=== PATIENT | male | born 1930 | race Caucasian/White ===

== ENCOUNTER → 2017-08-15 | Outpatient (CLI) | payer OTHER ==
[~2017-08-15] MED LIST: OMEPRAZOLE 20 M20 MG PO; SIMVASTATIN40 MG PO; SYNTHROID50 MCG PO; XALATAN2.5 ML OPHTHALMIC
--- NOTE | ~2017-08-15 | P ---
[facility] [place] [address] PROCEDURE REPORT Name: GISELA DUDLEY Room #: REG [facility]#: [id number] Admission: 08/15/17 Attend Phys: Moshe Hercules MD Discharge: Date of : [birth year] Report #: [id number] THIS REPORT FOR: //name// CC: Sergei Hercules DATE OF SERVICE: 08/15/2017 BRONCHOSCOPY NOTE PROCEDURE: Fiberoptic bronchoscopy with right upper lobe transbronchial biopsies, brushings and bronchial lavage in the anterior segment of the right upper lobe. INDICATION: Lung mass, ASA classification class 2. PROCEDURE NOTATION: After discussing risks, benefits of planned procedure with the patient, he desired to proceed. After obtaining informed consent, the patient was brought to endoscopy where he was placed on continuous cardiopulmonary monitoring and supplemental oxygen, then given 4% lidocaine nebulized to anesthetize the upper respiratory tract. Once accomplished, he received conscious sedation, a total of 6 mg of Versed and 50 mcg of fentanyl were titrated during the procedure to provide adequate sedation. Once accomplished, bronchoscope was passed through an oral biteblock until the vocal cords were visualized. The vocal cords moved appropriately both before and after procedure. Lidocaine 1% was instilled in the tracheobronchial tree bilaterally for topical anesthesia. Once complete, airways were surveyed. FINDINGS: Mainstem, lobar, segmental and subsegmental bronchi were explored. No significant anatomic variation or endobronchial disease except for the findings in the right upper lobe which showed some distortion particularly in the anterior segment of the right upper lobe. Subsegmental bronchi were not able to be explored. No discrete mass, however, was visualized. Several cytologic brushings were obtained in the anterior segment of the right upper lobe followed by transbronchial biopsies. This was followed by bronchial lavage in this area. The patient tolerated very well with only minimal blood loss. No noted complications. The patient did receive some Tessalon Perles and Tussionex post-procedure to assist with cough control. IMPRESSION: Right upper lobe mass, status post bronchoscopy with biopsies, brushings and lavage. [address] [address] PROCEDURE REPORT Name: GISELA DUDLEY Room #: REG [facility]#: [id number] Admission: 08/15/17 Attend Phys: Moshe Hercules MD Discharge: Date of : [birth year] Report #: [id number] PLAN: Await cytologic microbiologic and histopathologic tests. <ELECTRONICALLY SIGNED> By: Moshe Hercules MD 08/21/17 1234 1144 1924 Moshe Hercules MD /nt
--- NOTE | ~2017-08-15 | S ---
[facility] [place] [address] SURGICAL PATH RPT PROCEDURE Name: GISELA DUDLEY Umesh Room #: REG [facility].#: [id number] Admission: 08/15/17 Date of : [birth year] Discharge: Report #: [id number] Path Case #: [id number] PATHOLOGY REPORT COLLECTION DATE: 08/15/2017 RECEIVED DATE: 08/15/2017 SUBMITTING PHYS: Dr. Moshe Hercules OTHER PHYS: Dr. Sergei Freitas SPECIMEN(S) RECEIVED: A.DESIRAE * * * * * * * * * * * * FINAL DIAGNOSIS: "RUL", transbronchial biopsies: - Alveolated lung tissue and bronchial wall with acute and chronic inflammation, reactive changes including mildly increased intra-alveolar macrophages, focal organizing changes and focal fresh hemorrhage; no epithelial malignancy seen. COMMENT: Please see also the cytology specimens ([id number]). Clinical, radiographic and bronchoscopic correlation is required. The case is discussed with Dr. Moshe Hercules on 08/16/17 at approximately 12:15 PM. (CLW:mml; 08/16/2017) PATHOLOGIST: Ellie Winslow M.D. REPORT ELECTRONICALLY SIGNED BY: Ellie Winslow M.D. DATE/TIME: 08/16/2017 21:53 * * * * * * * * * * * * GROSS PATHOLOGY: Received in formalin labeled "Gisela Dudley, biopsy right upper lobe" is a 0.8 x 0.6 x 0.1 cm aggregate of pink-oconnell soft tissue fragments. The specimen is submitted entirely in cassette A1-A3. ([facility]; 08/15/2017) CLINICAL HISTORY: Lung mass. INITIAL CPT CODE(S): A; 30406 [facility] [address] [place] [address] SURGICAL PATH RPT PROCEDURE Name: GISELA DUDLEY Room #: REG [facility]#: [id number] Admission: 08/15/17 Date of : [birth year] Discharge: Report #: [id number] Path Case #: [id number] [address] [facility] , [place] [address] Technical services performed by [facility] at [address] [place] [address], [facility] [address] [address]. [facility] [place] [address] PHONE: [phone] DIRECTOR: Josh Conde M.D. * * * END OF REPORT * * *
--- NOTE | ~2017-08-15 | CNG ---
[facility] [place] [address] CYTO-NONGYN REPORT PROCEDURE Name: GISELA DUDLEY Room #: REG [facility]#: [id number] Admission: 08/15/17 Date of : [birth year] Discharge: Report #: [id number] Path Case #: [id number] CYTOPATHOLOGY REPORT COLLECTION DATE: 08/15/2017 RECEIVED DATE: 08/15/2017 SUBMITTING PHYS: Dr. Moshe Hercules OTHER PHYS: Dr. Sergei Freitas CLINICAL HISTORY: Lung mass; see also [id number] SPECIMEN(S) RECEIVED: A.Bronchoalveolar lavage B.Brushing, RUL * * * * * * * * * * * * FINAL DIAGNOSIS: A. Bronchoalveolar lavage: - No malignant epithelial cells identified. - Bronchial epithelial cells, alveolar macrophages, squamous epithelial cells and abundant acute and chronic inflammatory cells are present. B. Brushing, RUL: - No malignant epithelial cells identified. - Alveolar macrophages, squamous epithelial cells, reactive bronchial epithelial cells and acute and chronic inflammatory cells are present. COMMENT: Please see also the transbronchial biopsy ([id number]). Clinical, radiographic and bronchoscopic correlation is recommended. The case is discussed with Dr. Moshe Hercules on 08/16/17 at approximately 12:15 PM. PATHOLOGIST: Ellie Winslow M.D. REPORT ELECTRONICALLY SIGNED BY: Ellie Winslow M.D. DATE/TIME: 08/16/2017 13:36 * * * * * * * * * * * * GROSS PATHOLOGY: A. Bronchoalveolar lavage: The specimen is submitted unfixed, labeled "Gisela Dudley". Received by the Cytology Department is 15 mL of red fluid. One ThinPrep slide was prepared. B. Brushing, RUL: The specimen is labeled "Gisela Dudley" and consists of five fixed slides. One brush tip in fixative is also submitted and one ThinPrep slide was prepared from this material. (clt 08.15.2017) WASTE WATER [employer] WATER PLANT OPERATOR(S): GISSELLE Hendricks(ASCP) [address] [address] CYTO-NONGYN REPORT PROCEDURE Name: GISELA DUDLEY Room #: REG [facility]#: [id number] Admission: 08/15/17 Date of : [birth year] Discharge: Report #: [id number] Path Case #: [id number] INITIAL CPT CODE(S): A; 40024 B; 44549 Professional services performed by [facility] at [facility] [address] [facility], [place] [address] [facility] performed by [facility] at [address] [place] [address]., [address], [place] [address]. [address], [address] [place] [address] PHONE: [phone] DIRECTOR: Josh Conde M.D. * * * END OF REPORT * * *
== END | disposition home or self-care (01) ==
LOC: CATH 07:45
DX: J98.09 Other diseases of bronchus, not elsewhere classified (principal); Z88.8 Allergy status to other drugs, medicaments and biological substances; Z79.899 Other long term (current) drug therapy

== ENCOUNTER → 2017-08-21 | Outpatient (CLI) | payer OTHER | LOC: RAD 14:14 | DX: R91.8 Other nonspecific abnormal finding of lung field (principal); R06.02 Shortness of breath ==

== ENCOUNTER → 2017-09-11 | Outpatient (CLI) | payer OTHER | LOC: RAD 14:00 | DX: J98.4 Other disorders of lung (principal); R91.8 Other nonspecific abnormal finding of lung field ==

== ENCOUNTER → 2017-12-03 | Outpatient (CLI) | payer OTHER | LOC: RAD 08:27 | DX: J18.9 Pneumonia, unspecified organism (principal) ==

== ENCOUNTER → 2018-01-09 | Outpatient (CLI) | payer OTHER | LOC: RAD 13:19 | DX: J18.9 Pneumonia, unspecified organism (principal) ==

== ENCOUNTER → 2018-01-14 | Outpatient (CLI) | payer OTHER | LOC: CAT 10:22 | DX: I77.810 Thoracic aortic ectasia (principal); J98.4 Other disorders of lung; J18.9 Pneumonia, unspecified organism; I25.10 Atherosclerotic heart disease of native coronary artery without angina pectoris; R91.1 Solitary pulmonary nodule ==

== ENCOUNTER → 2018-02-03 | Outpatient (CLI) | payer OTHER | LOC: RAD 08:38 | DX: J98.4 Other disorders of lung (principal); J18.9 Pneumonia, unspecified organism; R91.1 Solitary pulmonary nodule ==

== ENCOUNTER → 2018-03-31 | Outpatient (CLI) | payer OTHER | LOC: CAT 03-26 15:41 | DX: J98.4 Other disorders of lung (principal); R91.8 Other nonspecific abnormal finding of lung field ==

== ENCOUNTER → 2018-09-15 | Outpatient (CLI) | payer OTHER | LOC: CAT 12:17 | DX: J43.9 Emphysema, unspecified (principal); R91.8 Other nonspecific abnormal finding of lung field; J47.9 Bronchiectasis, uncomplicated; J98.4 Other disorders of lung; I77.810 Thoracic aortic ectasia; I70.0 Atherosclerosis of aorta; I25.10 Atherosclerotic heart disease of native coronary artery without angina pectoris; M25.78 Osteophyte, vertebrae; K76.9 Liver disease, unspecified; C61 Malignant neoplasm of prostate ==